=== PATIENT | female | born 1965 | race Caucasian/White ===

== ENCOUNTER 2016-11-19 15:25 | Emergency (ER) | payer OTHER ==
[2016-11-19] MEDS ORDERED: ONDANSETRON 4 MG VIAL ONE (16:38)
[2016-11-19] MEDS ORDERED: KETOROLAC 30 MG/ML VIAL ONE (16:39)
[2016-11-19] MEDS ORDERED: SODIUM CHLORIDE 0.9% 1,000 ML ONE (16:39)
[2016-11-19] MEDS ORDERED: SODIUM CHLORIDE 0.9% 100 ML IV ONE (17:35)
[2016-11-19] MEDS ORDERED: CEFTRIAXONE 1 GM VIAL ONE (17:35)
== END 2016-11-19 18:32 | disposition home or self-care (01) ==
LOC: ER 16:31
DX: N30.00 Acute cystitis without hematuria (principal); N10 Acute pyelonephritis; R74.8 Abnormal levels of other serum enzymes; E03.9 Hypothyroidism, unspecified; Z79.899 Other long term (current) drug therapy
CPT/HCPCS: 36415; 74176; 80053; 81001; 83690; 84703; 85025; 87088; 96361; 96365; 96375; 99285; J0696; J1885; J2405